=== PATIENT | female | born 1970 | race Caucasian/White ===

== ENCOUNTER → 2016-03-31 | Outpatient (CLI) | payer OTHER ==
[~2016-03-31] MED LIST: BLAC1TAB PO; MULT-506 PO; ONDA4TAB46 PO; OXYC-57 PO
--- NOTE | 2016-03-31 09:31 | DIAGNOSTIC IMAGING REPORT ---
AP PELVIS/BILAT HIP MIN 3-4V CLINICAL HISTORY: M25.551 Hip pain, [id number] COMPARISON STUDY: None. FINDINGS: No fracture or dislocation within the pelvis or hips. The sacrum is intact. Bilateral hip cartilage spaces are maintained. There are multiple pelvic phleboliths. The lower lumbar spine is unremarkable. IMPRESSION: Unremarkable pelvis and hips. Electronically signed by: Luis Eduardo Beach M.D. 03/31/2016 9:30 AM Dictated Date/Time: 03/31/2016 9:28 AM
[2016-03-31 11:06] LABS: BASO % 0.4 %; BASO ABS # 0.03 K/uL (0-0.2); COMPLETE YES; EOS % 1.6 %; HEMATOCRIT 38.1 % (37-47); IG% 0.1 %; MEAN CELL VOLUME 79.9 fL (80-100); MEAN CORPUSCULAR HGB CONC 32.5 g/dl (32-36); MEAN PLATELET VOLUME 9.3 fL (7.4-10.4); MONO % 8.5 %; NEUT % 68.4 %; PLATELET COUNT 333 K/uL (130-400); RED BLOOD COUNT 4.77 M/uL (4.2-5.4); WHITE BLOOD COUNT 6.67 K/uL (4.8-10.8)
[2016-03-31 12:15] LABS: LYME DISEASE AB IGG NEG (NEG)
[2016-03-31 12:16] LABS: LYME DISEASE AB IGM POS (NEG)
[2016-04-05 12:17] LABS: 18KDIGG BAND NONREACTIVE (NONREACTIVE); 23KDIGG BAND NONREACTIVE (NONREACTIVE); 23KDIGM BAND NONREACTIVE (NONREACTIVE); 28KDIGG BAND NONREACTIVE (NONREACTIVE); 30KDIGG BAND NONREACTIVE (NONREACTIVE); 39KDIGG BAND NONREACTIVE (NONREACTIVE); 39KDIGM BAND NONREACTIVE (NONREACTIVE); 41KDIGG BAND REACTIVE (NONREACTIVE); 41KDIGM BAND NONREACTIVE (NONREACTIVE); 45KDIGG BAND NONREACTIVE (NONREACTIVE); 58KDIGG BAND NONREACTIVE (NONREACTIVE); 66KDIGG BAND NONREACTIVE (NONREACTIVE); 93KDIGG BAND NONREACTIVE (NONREACTIVE)
== END | disposition home or self-care (01) ==
LOC: C.RADBC 09:02
PROVIDERS: ATTEND Nurse Practitioner Family
DX: M25.551 Pain in right hip (principal)

== ENCOUNTER 2016-04-06 05:55 | Emergency (ER) | payer OTHER ==
[~2016-04-06] VITALS: Ht 162.6 cm; Wt 54.7 kg
[~2016-04-06 05:55] MED LIST changes: -ONDA4TAB46 PO; -OXYC-57 PO
[2016-04-06 05:56] VITALS: Ht 162.6 cm; Wt 54.7 kg
[2016-04-06] MEDS ORDERED: SODIUM CHLORIDE 0.9% 1000ML 1,000 ML IV STA ×2 (06:06)
[2016-04-06] MEDS ORDERED: MoRPHine SULFATE 4 MG/ML 1 ML CARP\\VIAL IV STA ×2 (06:06→07:06)
[2016-04-06] MEDS ORDERED: ONDANSETRON INJ 2 MG/ML 2 ML VIAL IV STA (06:06)
[2016-04-06 06:35] LABS: BASO % 0.2 %; BASO ABS # 0.02 K/uL (0-0.2); COMPLETE YES; EOS % 0.5 %; HEMATOCRIT 36.6 % (37-47); IG% 0.3 %; LYMPH % 16.1 %; LYMPH ABS # 1.51 K/uL (1.2-3.4); MEAN CELL VOLUME 80.1 fL (80-100); MEAN CORPUSCULAR HGB CONC 32.5 g/dl (32-36); MONO % 5.4 %; NEUT % 77.5 %; PLATELET COUNT 340 K/uL (130-400); RED BLOOD COUNT 4.57 M/uL (4.2-5.4); WHITE BLOOD COUNT 9.38 K/uL (4.8-10.8)
[2016-04-06 06:42] VITALS: O2SAT 100
[2016-04-06] MEDS ORDERED: KETOROLAC TROMETHAMINE 30 MG/ML VIAL IV STA (06:42)
--- NOTE | 2016-04-06 06:46 | DIAGNOSTIC IMAGING REPORT ---
CHEST ONE VIEW PORTABLE CLINICAL HISTORY: CHEST PAIN pain COMPARISON STUDY: No previous studies for comparison. FINDINGS: The bones soft tissues and hemidiaphragms are normal. The cardiomediastinal silhouette is normal. The lungs are clear. The pulmonary vasculature is normal. IMPRESSION: Negative chest. Electronically signed by: Orion Glez M.D. 04/06/2016 6:45 AM Dictated Date/Time: 04/06/2016 6:45 AM
--- NOTE | 2016-04-06 06:49 | DIAGNOSTIC IMAGING REPORT ---
ABDOMEN AND PELVIS CT WITHOUT CONTRAST CT DOSE: 394.85 mGy.cm HISTORY: Pain severe left flank pain TECHNIQUE: Multiaxial CT images of the abdomen and pelvis were performed without the use of intravenous and oral contrast according to the standard department stone protocol. COMPARISON STUDY: None. FINDINGS: Lung bases are clear. Liver spleen and pancreas are unremarkable. Nonobstructing renal calcifications lower aspects of both kidneys. Right kidney is negative for hydronephrosis. 4 mm partially obstructing calculus mid left ureter. Bladder is midline. There are no contained calcifications. Multiple pelvic vascular calcifications. Nonobstructive bowel pattern] normal appendix. IMPRESSION: 1. 4 mm obstructing calculus mid left ureter. Mild left hydroureteronephrosis 2. Multiple additional nonobstructing calcifications lower aspect of both kidneys. 3. Study is otherwise negative. Electronically signed by: Orion Glez M.D. 04/06/2016 6:48 AM Dictated Date/Time: 04/06/2016 6:45 AM
[2016-04-06 06:52] LABS: ALT/SGPT 23 U/L (12-78); BLOOD UREA NITROGEN 19 mg/dl (7-18); BUN/CREATININE RATIO 19.8 (10-20); CALCIUM 8.6 mg/dl (8.5-10.1); CARBON DIOXIDE 22 mmol/L (21-32); CHLORIDE 106 mmol/L (98-107); CREATININE 0.95 mg/dl (0.60-1.20); GLUCOSE 145 mg/dl (70-99); POTASSIUM 3.9 mmol/L (3.5-5.1); SODIUM 140 mmol/L (136-145)
[2016-04-06 06:55] LABS: PREG INTERNAL NEGATIVE QC NEG CLEAR BACKGROUND; PREG INTERNAL POSITIVE QC POS CONTROL LINE
[2016-04-06 06:57] LABS: ALKALINE PHOSPHATASE 97 U/L (45-117); AST/SGOT 22 U/L (15-37)
--- NOTE | 2016-04-06 07:17 | EMERGENCY ROOM VISIT NOTE ---
History First contact with patient: 06:05 Chief Complaint: ABDOMINAL PAIN Stated Complaint: PAIN,THROW UP,NAUSEA History of Present Illness The patient is a 45 year old female who presents to the Emergency Room with complaints of sudden onset of left flank pain that radiates to the groin since 4 AM with nausea and vomiting described as severe, 9 out of 10. Nothing makes it better or worse. No history kidney stents. Patient denies chest pain, dyspnea, fever, chills, vaginal itching or discharge, dysuria. 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 She follows at Dr. Millan. She is currently cancer free. Review of Systems See HPI for pertinent positives & negatives. A total of 10 systems reviewed and were otherwise negative. Past Medical/Surgical History Breast cancer, neck cancer Social History Smoking Status: Never Smoker Smokeless Tobacco Use: No Alcohol Use: none Drug Use: none Current/Historical Medications No Active Prescriptions or Reported Meds Allergies Uncoded Allergies: PENICILLIN (Allergy, Mild, UNKNOWN REACTION, 08/03/15) Physical Exam Vital Signs Date Time Temp Pulse Resp B/P Pulse Ox O2 Delivery O2 Flow Rate FiO2 04/06/16 06:53 82 04/06/16 06:42 100 Room Air 04/06/16 06:42 100 Room Air 04/06/16 05:56 86 21 139/77 94 Room Air Physical Exam VITALS: Vitals are noted on the nurse's note and reviewed by myself. Vital signs stable. GENERAL: White female in obvious pain writhing vomiting, diaphoretic, well- developed well-nourished. SKIN: The skin was without rashes, erythema, edema, or bruising. There is no tenting of the skin. Capillary reflex less than 2 seconds. HEAD: Normocephalic atraumatic. EARS: External auditory canals clear, tympanic membranes pearly hernandez without erythema or effusion bilaterally. EYES: Pupils equal round and reactive to light and accommodation. Conjunctivae without injection, sclerae without icterus. Extraocular movements intact. NOSE: Patent, turbinates without inflammation or discharge. MOUTH: Mucous membranes mildly dry. Pharynx without erythema or exudate. Uvula midline. Airway patent. Tongue does not deviate. NECK: Supple without nuchal rigidity. No lymphadenopathy. No thyromegaly. Cervical spine is nontender. No JVD. HEART: Regular rate and rhythm without murmurs gallops or rubs. LUNGS: Clear to auscultation bilaterally without wheezes, rales or rhonchi. No dullness to percussion. No retractions or accessory muscle use. ABDOMEN: Positive bowel sounds x 4. Normal tympanic percussion. Soft, nontender, without masses or organomegaly. Moya sign negative. No guarding or rebound tenderness. No CVA tenderness MUSCULOSKELETAL: No muscle atrophy, erythema, or edema noted. NEURO: Patient was alert and oriented to person place and time. Normal sensation to light and sharp touch. No focal neurological deficits. Medical Decision & Procedures Laboratory Results 04/06/16 06:22 Red Blood Count 4.57, Mean Corpuscular Volume 80.1, Mean Corpuscular Hemoglobin 26.0, Mean Corpuscular Hemoglobin Concent 32.5, Mean Platelet Volume 9.0, Neutrophils (%) (Auto) 77.5, Lymphocytes (%) (Auto) 16.1, Monocytes (%) (Auto) 5.4, Eosinophils (%) (Auto) 0.5, Basophils (%) (Auto) 0.2, Neutrophils # (Auto) 7.26, Lymphocytes # (Auto) 1.51, Monocytes # (Auto) 0.51, Eosinophils # (Auto) 0.05, Basophils # (Auto) 0.02 04/06/16 06:22 Test 04/06/16 06:22 White Blood Count 9.38 K/uL (4.8-10.8) Red Blood Count 4.57 M/uL (4.2-5.4) Hemoglobin 11.9 g/dL (12.0-16.0) Hematocrit 36.6 % (37-47) Mean Corpuscular Volume 80.1 fL (80-100) Mean Corpuscular Hemoglobin 26.0 pg (25-34) Mean Corpuscular Hemoglobin Concent 32.5 g/dl (32-36) Platelet Count 340 K/uL (130-400) Mean Platelet Volume 9.0 fL (7.4-10.4) Neutrophils (%) (Auto) 77.5 % Lymphocytes (%) (Auto) 16.1 % Monocytes (%) (Auto) 5.4 % Eosinophils (%) (Auto) 0.5 % Basophils (%) (Auto) 0.2 % Neutrophils # (Auto) 7.26 K/uL (1.4-6.5) Lymphocytes # (Auto) 1.51 K/uL (1.2-3.4) Monocytes # (Auto) 0.51 K/uL (0.11-0.59) Eosinophils # (Auto) 0.05 K/uL (0-0.5) Basophils # (Auto) 0.02 K/uL (0-0.2) RDW Standard Deviation 47.5 fL (36.4-46.3) RDW Coefficient of Variation 16.2 % (11.5-14.5) Immature Granulocyte % (Auto) 0.3 % Immature Granulocyte # (Auto) 0.03 K/uL (0.00-0.02) Anion Gap 12.0 mmol/L (3-11) Est Creatinine Clear Calc Drug Dose 63.2 ml/min Estimated GFR () 82.7 Estimated GFR (Non- 71.3 BUN/Creatinine Ratio 19.8 (10-20) Calcium Level 8.6 mg/dl (8.5-10.1) Total Bilirubin 0.3 mg/dl (0.2-1) Direct Bilirubin < 0.1 mg/dl (0-0.2) Aspartate Amino Transf (AST/SGOT) 22 U/L (15-37) Alanine Aminotransferase (ALT/SGPT) 23 U/L (12-78) Alkaline Phosphatase 97 U/L (45-117) Troponin I < 0.015 ng/ml (0-0.045) Total Protein 7.3 gm/dl (6.4-8.2) Albumin 3.7 gm/dl (3.4-5.0) Lipase 91 U/L (73-393) Human Chorionic Gonadotropin, Qual NEG (NEG) Medications Administered Medications (Trade) Dose Ordered Sig/Jonh Route Start Time Stop Time Status Last Admin Dose Admin Morphine Sulfate (MoRPHine SULFATE INJ) 4 mg NOW STAT IV 04/06/16 06:06 04/06/16 06:09 DC 04/06/16 06:39 4 MG Ondansetron HCl 4 mg 4 mg NOW STAT IV 04/06/16 06:06 04/06/16 06:09 DC 04/06/16 06:39 4 MG Sodium Chloride (Nss 1000ml) 1,000 ml @ 999 mls/hr Q1H1M STAT IV 04/06/16 06:06 04/06/16 07:06 DC 04/06/16 06:39 999 MLS/HR Ketorolac Tromethamine (Toradol Inj) 30 mg NOW STAT IV 04/06/16 06:42 04/06/16 06:43 DC 04/06/16 06:53 30 MG ED Course Prior records/ancillary studies reviewed. Triage Nursing notes reviewed. Additional history obtained from the family. The patient's history was concerning for left flank pain. Differential diagnosis: Etiologies such as renal colic, appendicitis, diverticulitis, mesenteric ischemia, aortic pathology, infections, inflammatory bowel disease, PUD, biliary pathology, UTI, as well as others were entertained. Physical examination findings: As above. ER treatment provided: Morphine, Zofran, IV fluids On reassessment the patient felt better. Diagnostic interpretation by me: EKG: Normal sinus, normal intervals, no acute ST-T wave changes. Impression normal sinus rhythm interpreted by myself (patient was pale and weak appearing so EKG was ordered) The labs revealed mild anemia. No leukocytosis. Hyperglycemia without DKA. Imaging studies: CT of the abdomen and pelvis as above. Chest x-ray with no acute consolidation, pneumothorax or free air per my interpretation ABDOMEN AND PELVIS CT WITHOUT CONTRAST CT DOSE: 394.85 mGy.cm HISTORY: Pain severe left flank pain TECHNIQUE: Multiaxial CT images of the abdomen and pelvis were performed without the use of intravenous and oral contrast according to the standard department stone protocol. COMPARISON STUDY: None. FINDINGS: Lung bases are clear. Liver spleen and pancreas are unremarkable. Nonobstructing renal calcifications lower aspects of both kidneys. Right kidney is negative for hydronephrosis. 4 mm partially obstructing calculus mid left ureter. Bladder is midline. There are no contained calcifications. Multiple pelvic vascular calcifications. Nonobstructive bowel pattern] normal appendix. IMPRESSION: 1. 4 mm obstructing calculus mid left ureter. Mild left hydroureteronephrosis 2. Multiple additional nonobstructing calcifications lower aspect of both kidneys. 3. Study is otherwise negative. Electronically signed by: Orion Glez M.D. Consultation: A consultation was placed with the [] hospitalist. The case was discussed and diagnostics were reviewed. The patient was evaluated in the ER for further treatment. It appears that the patient has isolated renal colic from a left sided stone. Patient was still a fair amount of pain despite being medicated multiple times as above. She will elevate evaluated by medicine for possible admission. She did not have acute abdomen on exam. By the evaluation outlined above emergent etiologies such as appendicitis, diverticulitis, mesenteric ischemia, aortic pathology, infections, inflammatory bowel disease, PUD, biliary pathology, as well as others were deemed relatively unlikely. The pt informed about the findings as listed above. All questions were answered and pleased with the treatment. Case reviewed by attending. Medical Decision As above [place] Drug Monitoring Program Search Results: patient reviewed within database, no issues identified Impression Primary Impression: Renal colic on left side Additional Impression: Vomiting Departure Information Dispostion Being Evaluated By Hospitalist Condition GOOD Prescriptions No Active Prescriptions or Reported Meds Referrals Mindi Bell MD (PCP) Patient Instructions My [facility] Problem Qualifiers Additional Impression: Vomiting Nausea presence: with nausea
[2016-04-06 08:56] LABS: URINE APPEARANCE CLEAR (CLEAR); URINE BILIRUBIN NEG (NEG); URINE COLOR YELLOW; URINE NITRITE NEG (NEG); URINE SPECIFIC GRAVITY 1.009 (1.000-1.030); UROBILINOGEN NEG (NEG); ZZUR CULT IF INDIC CLEAN CATCH NO
[2016-04-06 09:07] LABS: MANUAL MICROSCOPIC REQUIRED? NO; REVIEW REQ? NO
--- NOTE | 2016-04-06 09:19 | Medical Consult ---
Consultation Date of Consultation: Apr 06, 2016. Attending Physician: Dr. Reyes Reason for Consultation: Kidney stone History of Present Illness This patient is a pleasant 45-year-old female that presents the emergency department complaining of a sudden onset of left flank pain radiating to the left side of her abdomen that started this morning at approximately 4 AM. The patient had associated nausea and vomiting. She denies any diarrhea. No changes in bowel habits. She denies any urinary symptoms such as dysuria, urinary frequency or hematuria. She denies any fever or chills. In the emergency department, a CT scan was performed and shows a 4 mm obstructing stone in the left mid ureter with mild hydronephrosis. The patient received 1 dose of Toradol and morphine in the emergency department in addition to a liter of IV fluids. She is now rating her pain a 1/10. 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 (1) Renal colic on left side Status: Acute (2) Vomiting Status: Acute Family History Mother-breast cancer Social History Smoking Status: Never Smoker Smokeless Tobacco Use: No Alcohol Use: socially Drug Use: none Marital Status: Housing Status: lives with family Occupation Status: employed Allergies Uncoded Allergies: PENICILLIN (Allergy, Mild, UNKNOWN REACTION, 08/03/15) Home Medications Patient does not take prescription medications at home Current Inpatient Medications Current Inpatient Medications Medications (Trade) Dose Ordered Sig/Jonh Route Start Time Stop Time Status Last Admin Dose Admin Sodium Chloride (Nss 1000ml) 1,000 ml @ 125 mls/hr Q8H STAT IV 04/06/16 06:06 04/06/16 14:05 04/06/16 07:33 125 MLS/HR Review of Systems 10 system review performed and negative unless noted in HPI or below Physical Exam Date Time Temp Pulse Resp B/P Pulse Ox O2 Delivery O2 Flow Rate FiO2 04/06/16 07:34 79 15 129/86 100 Room Air 04/06/16 06:53 82 04/06/16 06:42 100 Room Air 04/06/16 06:42 100 Room Air 04/06/16 05:56 86 21 139/77 94 Room Air VITALS: Vitals are noted on the nurse's note and reviewed by myself. Vital signs stable. GENERAL: 45-year-old female, resting comfortably in bed, in no acute distress, nondiaphoretic, well-developed well-nourished. SKIN: The skin was without rashes, erythema, edema, or bruising. HEAD: Normocephalic atraumatic. MOUTH: Mucous membranes slightly dry NECK: Supple without nuchal rigidity. No lymphadenopathy. . No JVD. HEART: Regular rate and rhythm without murmurs gallops or rubs. LUNGS: Clear to auscultation bilaterally without wheezes, rales or rhonchi. No accessory muscle use. ABDOMEN: Positive bowel sounds x 4.Soft, mild tenderness to palpation noted in the left lower abdomen, without organomegaly. No guarding or rebound tenderness. No CVA tenderness noted bilaterally. MUSCULOSKELETAL: No muscle atrophy, erythema, or edema noted. Strength 5/5 throughout. NEURO: Patient was alert and oriented to person place and time. Normal sensation to touch. No focal neurological deficits. Laboratory Results ABDOMEN AND PELVIS CT WITHOUT CONTRAST CT DOSE: 394.85 mGy.cm HISTORY: Pain severe left flank pain TECHNIQUE: Multiaxial CT images of the abdomen and pelvis were performed without the use of intravenous and oral contrast according to the standard department stone protocol. COMPARISON STUDY: None. FINDINGS: Lung bases are clear. Liver spleen and pancreas are unremarkable. Nonobstructing renal calcifications lower aspects of both kidneys. Right kidney is negative for hydronephrosis. 4 mm partially obstructing calculus mid left ureter. Bladder is midline. There are no contained calcifications. Multiple pelvic vascular calcifications. Nonobstructive bowel pattern] normal appendix. IMPRESSION: 1. 4 mm obstructing calculus mid left ureter. Mild left hydroureteronephrosis 2. Multiple additional nonobstructing calcifications lower aspect of both kidneys. 3. Study is otherwise negative. Electronically signed by: Orion Glez M.D. 04/06/2016 6:48 AM Dictated Date/Time: 04/06/2016 6:45 AM The status of this report is Signed. Draft = Not yet reviewed or approved by Radiologist. Signed = Reviewed and approved by Radiologist. <AttendingPhy></AttendingPhy> <FamilyPhy>Mindi Bell MD</FamilyPhy> < PrimaryPhy>Mindi Bell MD</PrimaryPhy> <UnitNumber>[id number]</UnitNumber > <VisitNumber>[id number]</VisitNumber> <PatientName>JACQUELINE GILMORE</ PatientName> <DateOfBirth>1970</DateOfBirth> <Location>[facility]</Location> < ServiceDate>04/06/16</ServiceDate> <MNE>ESINDI</MNE> <OrderingPhy>Ketty Fisher PA-C</OrderingPhy> <OrderingPhyMNE>f rep ord dr jim</OrderingPhyMNE> < DictatingPhyMNE>f rep dict dr jim</DictatingPhyMNE> <CCListMNE>f rep ct mne</ CCListMNE> <AdmittingPhyMNE>f pt admit dr jim</AdmittingPhyMNE> <AttendingPhyMNE >f pt attend dr jim</AttendingPhyMNE> <ConsultingPhyMNE>f pt consult dr jim</ConsultingPhyMNE> <FamilyPhyMNE>f pt fam dr jim</FamilyPhyMNE> <OtherPhyMNE>f pt other dr jim</OtherPhyMNE> < PrimaryPhyMNE>f pt prim care dr jim</PrimaryPhyMNE> <ReferringPhyMNE>f pt referring dr jim</ReferringPhyMNE> Patient: JACQUELINE GILMORE Address1: [address] [facility] Rec: [id number] Address2: Acct ID: [id number] [facility] Zip: [place] [address] Date: 1970 Sex: F Room/Bed: Ref Phy: Mindi Bell MD SC: ELISA Att Phy: Report #: [id number] Shahida Phy: Mindi Bell MD Test: CXR1P Admit Phy: Human Resources Operations Coordinator: YASMIN Interpreting Phy: Orion Glez M.D. Diagnosis: PAIN,THROW UP,NAUSEA Ordering Phy: Ketty Fisher PA-C Service Date: 04/06/16 Admit Date: 04/06/16 MNE: [id number] CONF: DICTATED BY: Orion Glez M.D.]] CC: Shamika Reyes D.O. Johnson, Kimberly ., Mindi Pablo MD Endcc: [~ rep ct add3]] CHEST ONE VIEW PORTABLE CLINICAL HISTORY: CHEST PAIN pain COMPARISON STUDY: No previous studies for comparison. FINDINGS: The bones soft tissues and hemidiaphragms are normal. The cardiomediastinal silhouette is normal. The lungs are clear. The pulmonary vasculature is normal. IMPRESSION: Negative chest. Electronically signed by: Orion Glez M.D. 04/06/2016 6:45 AM Dictated Date/Time: 04/06/2016 6:45 AM The status of this report is Signed. Draft = Not yet reviewed or approved by Radiologist. Signed = Reviewed and approved by Radiologist. <AttendingPhy></AttendingPhy> <FamilyPhy>Mindi Bell MD</FamilyPhy> < PrimaryPhy>Mindi Bell MD</PrimaryPhy> <UnitNumber>[id number]</UnitNumber > <VisitNumber>[id number]</VisitNumber> <PatientName>JACQUELINE GILMORE</ PatientName> <DateOfBirth>1970</DateOfBirth> <Location>C.EDB</Location> < ServiceDate>04/06/16</ServiceDate> <MNE>ESINDI</MNE> <OrderingPhy>Ketty Fisher PA-C</OrderingPhy> <OrderingPhyMNE>f rep ord dr jim</OrderingPhyMNE> < DictatingPhyMNE>f rep dict dr jim</DictatingPhyMNE> <CCListMNE>f rep ct mne</ CCListMNE> <AdmittingPhyMNE>f pt admit dr jim</AdmittingPhyMNE> <AttendingPhyMNE >f pt attend dr jim</AttendingPhyMNE> <ConsultingPhyMNE>f pt consult dr jim</ConsultingPhyMNE> <FamilyPhyMNE>f pt fam dr jim</FamilyPhyMNE> <OtherPhyMNE>f pt other dr jim</OtherPhyMNE> < PrimaryPhyMNE>f pt prim care dr jim</PrimaryPhyMNE> <ReferringPhyMNE>f pt referring dr jim</ReferringPhyMNE> 04/06/16 06:22 Red Blood Count 4.57, Mean Corpuscular Volume 80.1, Mean Corpuscular Hemoglobin 26.0, Mean Corpuscular Hemoglobin Concent 32.5, Mean Platelet Volume 9.0, Neutrophils (%) (Auto) 77.5, Lymphocytes (%) (Auto) 16.1, Monocytes (%) (Auto) 5.4, Eosinophils (%) (Auto) 0.5, Basophils (%) (Auto) 0.2, Neutrophils # (Auto) 7.26, Lymphocytes # (Auto) 1.51, Monocytes # (Auto) 0.51, Eosinophils # (Auto) 0.05, Basophils # (Auto) 0.02 04/06/16 06:22 Test 04/06/16 06:22 04/06/16 08:23 White Blood Count 9.38 K/uL (4.8-10.8) Red Blood Count 4.57 M/uL (4.2-5.4) Hemoglobin 11.9 g/dL (12.0-16.0) Hematocrit 36.6 % (37-47) Mean Corpuscular Volume 80.1 fL (80-100) Mean Corpuscular Hemoglobin 26.0 pg (25-34) Mean Corpuscular Hemoglobin Concent 32.5 g/dl (32-36) Platelet Count 340 K/uL (130-400) Mean Platelet Volume 9.0 fL (7.4-10.4) Neutrophils (%) (Auto) 77.5 % Lymphocytes (%) (Auto) 16.1 % Monocytes (%) (Auto) 5.4 % Eosinophils (%) (Auto) 0.5 % Basophils (%) (Auto) 0.2 % Neutrophils # (Auto) 7.26 K/uL (1.4-6.5) Lymphocytes # (Auto) 1.51 K/uL (1.2-3.4) Monocytes # (Auto) 0.51 K/uL (0.11-0.59) Eosinophils # (Auto) 0.05 K/uL (0-0.5) Basophils # (Auto) 0.02 K/uL (0-0.2) RDW Standard Deviation 47.5 fL (36.4-46.3) RDW Coefficient of Variation 16.2 % (11.5-14.5) Immature Granulocyte % (Auto) 0.3 % Immature Granulocyte # (Auto) 0.03 K/uL (0.00-0.02) Anion Gap 12.0 mmol/L (3-11) Est Creatinine Clear Calc Drug Dose 63.2 ml/min Estimated GFR () 82.7 Estimated GFR (Non- 71.3 BUN/Creatinine Ratio 19.8 (10-20) Calcium Level 8.6 mg/dl (8.5-10.1) Total Bilirubin 0.3 mg/dl (0.2-1) Direct Bilirubin < 0.1 mg/dl (0-0.2) Aspartate Amino Transf (AST/SGOT) 22 U/L (15-37) Alanine Aminotransferase (ALT/SGPT) 23 U/L (12-78) Alkaline Phosphatase 97 U/L (45-117) Troponin I < 0.015 ng/ml (0-0.045) Total Protein 7.3 gm/dl (6.4-8.2) Albumin 3.7 gm/dl (3.4-5.0) Lipase 91 U/L (73-393) Human Chorionic Gonadotropin, Qual NEG (NEG) Urine Color YELLOW Urine Appearance CLEAR (CLEAR) Urine pH 7.0 (4.5-7.5) Urine Specific [place] 1.009 (1.000-1.030) Urine Protein NEG (NEG) Urine Glucose (UA) NEG (NEG) Urine Ketones NEG (NEG) Urine Occult Blood 3+ (NEG) Urine Nitrite NEG (NEG) Urine Bilirubin NEG (NEG) Urine Urobilinogen NEG (NEG) Urine Leukocyte Esterase TRACE (NEG) Urine WBC (Auto) 1-5 /hpf (0-5) Urine RBC (Auto) >30 /hpf (0-4) Urine Hyaline Casts (Auto) 0 /lpf (0-5) Urine Epithelial Cells (Auto) 10-20 /lpf (0-5) Urine Bacteria (Auto) NEG (NEG) Last 24 Hours Test 04/06/16 06:22 04/06/16 08:23 White Blood Count 9.38 K/uL Red Blood Count 4.57 M/uL Hemoglobin 11.9 g/dL Hematocrit 36.6 % Mean Corpuscular Volume 80.1 fL Mean Corpuscular Hemoglobin 26.0 pg Mean Corpuscular Hemoglobin Concent 32.5 g/dl Platelet Count 340 K/uL Mean Platelet Volume 9.0 fL Neutrophils (%) (Auto) 77.5 % Lymphocytes (%) (Auto) 16.1 % Monocytes (%) (Auto) 5.4 % Eosinophils (%) (Auto) 0.5 % Basophils (%) (Auto) 0.2 % Neutrophils # (Auto) 7.26 K/uL Lymphocytes # (Auto) 1.51 K/uL Monocytes # (Auto) 0.51 K/uL Eosinophils # (Auto) 0.05 K/uL Basophils # (Auto) 0.02 K/uL RDW Standard Deviation 47.5 fL RDW Coefficient of Variation 16.2 % Immature Granulocyte % (Auto) 0.3 % Immature Granulocyte # (Auto) 0.03 K/uL Sodium Level 140 mmol/L Potassium Level 3.9 mmol/L Chloride Level 106 mmol/L Carbon Dioxide Level 22 mmol/L Anion Gap 12.0 mmol/L Blood Urea Nitrogen 19 mg/dl Creatinine 0.95 mg/dl Est Creatinine Clear Calc Drug Dose 63.2 ml/min Estimated GFR () 82.7 Estimated GFR (Non- 71.3 BUN/Creatinine Ratio 19.8 Random Glucose 145 mg/dl Calcium Level 8.6 mg/dl Total Bilirubin 0.3 mg/dl Direct Bilirubin < 0.1 mg/dl Aspartate Amino Transf (AST/SGOT) 22 U/L Alanine Aminotransferase (ALT/SGPT) 23 U/L Alkaline Phosphatase 97 U/L Troponin I < 0.015 ng/ml Total Protein 7.3 gm/dl Albumin 3.7 gm/dl Lipase 91 U/L Human Chorionic Gonadotropin, Qual NEG Assessment & Plan This patient is a 45-year-old female that presented to the emergency department complaining of a sudden onset of left flank pain radiating to her left lower abdomen with associated nausea and vomiting. Workup in the emergency department included a CT scan, which shows a 4 mm left ureteral stone in the mid ureter with mild hydronephrosis. There is no leukocytosis. Her kidney function is intact. Her pain is now well controlled. Vital signs are stable. No fever. -The patient was observed for an additional 30 minutes. Her pain continued to be well controlled. -The patient tolerated a full breakfast tray -I discussed options with the patient. She is comfortable being discharged home with antiemetics and pain medication. -She was instructed to follow-up with her primary care physician within the next few days -She is also instructed to strain her urine at home and stay well-hydrated -She may take ibuprofen 600 mg every 8 hours as needed for pain -She was given a prescription for Percocet 1-2 tabs every 4 hours as needed for severe pain or breakthrough pain -She was also given a prescription for Zofran 4 mg ODT to be taken every 6 hours as needed -She agrees to return to the emergency department with any worsening pain, intractable vomiting, fever or chills Thank you for this consultation. This patient is stable to be discharged home. Additional Copies To Mindi Bell MD
[2016-04-06] MEDS ORDERED: OXYC-57 PO (09:23)
[2016-04-06] MEDS ORDERED: ONDA4TAB46 PO (09:23)
[2016-04-06 11:08] VITALS: BP 109/72; PULSE 87; O2SAT 98
== END 2016-04-06 11:10 | disposition home or self-care (01) ==
LOC: C.EDB 05:56
DX: N13.2 Hydronephrosis with renal and ureteral calculous obstruction (principal); Z85.3 Personal history of malignant neoplasm of breast; Z90.10 Acquired absence of unspecified breast and nipple; Z88.0 Allergy status to penicillin; Z80.3 Family history of malignant neoplasm of breast

== ENCOUNTER → 2016-06-02 | Outpatient (CLI) | payer OTHER ==
[~2016-06-02] MED LIST changes: -BLAC1TAB PO; -MULT-506 PO; +ONDA4TAB46 PO; +OXYC-57 PO
--- NOTE | 2016-06-02 08:00 | DIAGNOSTIC IMAGING REPORT ---
Right inguinal ultrasound EXTREMITY NONVASCULAR LIMITED CLINICAL HISTORY: M25.551 Hip pain, right with swelling in area inferior to ing hip pain TECHNIQUE: Ultrasound COMPARISON STUDY: None FINDINGS: Several small benign-appearing right inguinal nodes. These measure up to 9 x 6 mm. No abnormalities at the right lateral hip region. IMPRESSION: Several small benign-appearing nodes. Otherwise negative study Electronically signed by: Orion Glez M.D. 06/02/2016 7:59 AM Dictated Date/Time: 06/02/2016 7:57 AM
== END | disposition home or self-care (01) ==
LOC: C.ULTR 07:27
PROVIDERS: ATTEND Family Medicine
DX: M25.551 Pain in right hip (principal); R59.0 Localized enlarged lymph nodes

== ENCOUNTER → 2016-06-03 | Outpatient (CLI) | payer OTHER | END | disposition home or self-care (01) | LOC: C.LABSPEC 17:18 | PROVIDERS: ATTEND Nurse Practitioner Adult Health | DX: N20.0 Calculus of kidney (principal) ==

== ENCOUNTER → 2016-06-13 | Outpatient (CLI) | payer OTHER ==
--- NOTE | 2016-06-13 11:14 | DIAGNOSTIC IMAGING REPORT ---
KUB CLINICAL HISTORY: CALCULUS OF KIDNEY COMPARISON STUDY: CT of the abdomen and pelvis April 06, 2016 FINDINGS: Several bilateral renal calculi are noted. The largest calculus is a 4 mm calculus within the midpole the right kidney. The left ureteral calculus shown on CT of April 06, 2016 is no longer visualized. Pelvic calcifications reflect phleboliths. IMPRESSION: 1. Bilateral nephrolithiasis. 2. No ureteral calculi identified. The left ureteral calculus shown on CT of April 06, 2016 is no longer visualized. Electronically signed by: Perry Oswald M.D. 06/13/2016 11:12 AM Dictated Date/Time: 06/13/2016 11:10 AM
== END | disposition home or self-care (01) ==
LOC: C.RAD 10:48
PROVIDERS: ATTEND Nurse Practitioner Adult Health
DX: N20.0 Calculus of kidney (principal)

== ENCOUNTER → 2016-06-17 | Outpatient (CLI) | payer OTHER | END | disposition home or self-care (01) | LOC: C.LABSPEC 17:46 | PROVIDERS: ATTEND Nurse Practitioner Adult Health | DX: N20.0 Calculus of kidney (principal) ==

== ENCOUNTER → 2016-12-17 | Outpatient (CLI) | payer OTHER ==
--- NOTE | 2016-12-17 09:45 | DIAGNOSTIC IMAGING REPORT ---
K[facility] HISTORY: Follow-up study in a patient with kidney stones. No acute symptoms reported BILATERAL KIDNEY STONES COMPARISON: KUB 06/13/2016, CT abdomen 04/06/2016. FINDINGS: The bowel gas pattern is non-obstructive. There is no organomegaly. Left-sided renal calculi are again seen measuring up to 4 mm within the inferior pole. The right kidney is partially obscured by bowel gas with previously noted right renal calculi not definitely seen. No definite ureteral calculi. Phleboliths of the pelvis redemonstrated. No pneumoperitoneum or pneumatosis. No fracture. IMPRESSION: 1. Unchanged appearance of left nephrolithiasis. No ureteral calculi. 2. Right kidney is partially obscured by bowel gas. Previously noted right nephrolithiasis is not clearly identified. Electronically signed by: Raghu Xiao M.D. 12/17/2016 9:43 AM Dictated Date/Time: 12/17/2016 9:40 AM
== END | disposition home or self-care (01) ==
LOC: C.RADBC 09:06
PROVIDERS: ATTEND Urology
DX: N20.0 Calculus of kidney (principal)

== ENCOUNTER → 2017-06-26 | Outpatient (CLI) | payer OTHER ==
--- NOTE | 2017-06-26 12:19 | DIAGNOSTIC IMAGING REPORT ---
KUB HISTORY: Follow-up study in a patient with nephrolithiasis. STRESS INCONTINENCE IN FEMALE COMPARISON: KUB 12/17/2016, CT 04/06/2016. FINDINGS: The bowel gas pattern is non-obstructive. There is no organomegaly. Renal shadows are partially obscured by bowel gas. Bilateral nephrolithiasis redemonstrated with calculi measuring up to 4 mm on the right. No definite ureteral calculi are identified. Calcifications of the pelvis are again seen suggesting phleboliths. No pneumoperitoneum or pneumatosis. No fracture. IMPRESSION: Bilateral nephrolithiasis without ureteral calculi identified. Electronically signed by: Raghu Xiao M.D. 06/26/2017 12:18 PM Dictated Date/Time: 06/26/2017 12:16 PM
== END | disposition home or self-care (01) ==
LOC: C.RAD 11:39
PROVIDERS: ATTEND Urology
DX: N39.3 Stress incontinence (female) (male) (principal)

== ENCOUNTER → 2017-06-30 | Outpatient (CLI) | payer OTHER | END | disposition home or self-care (01) | LOC: C.LABBC 08:53 | PROVIDERS: ATTEND Family Medicine | DX: E78.6 Lipoprotein deficiency (principal) ==